=== PATIENT | female | born 1990 | race American Indian/Alaskan Native ===

== ENCOUNTER 2018-08-04 10:11 | Emergency (ER) | payer MEDICAID ==
[2018-08-04] MEDS ORDERED: TORADOL IM ONE (11:01)
[2018-08-04] MEDS ORDERED: ZOFRAN ODT PO ONE (11:01)
--- NOTE | 2018-08-04 11:03 | Emergency Department Report ---
ED Headache HPI - General Chief Complaint: Headache Stated Complaint: HEADACHE Time Seen by Provider: 08/04/18 11:00 - History of Present Illness Initial Comments: Patient is a 28-year-old female who is presenting with headache is mostly right sided. States there is some radiation to the jaw. Describes as aching throbbing pain that is a 10 out of 10. Patient denies any history of headaches but also denies fevers chills focal neurological deficit trauma dysuria or urinary frequency . Patient states she has a considerable amount of stress that she is going through as of recently. Has some mild nausea and photophobia. Allergies/Adverse Reactions: Allergies Penicillins Allergy (Verified 08/04/18 10:13) Hives Home Medications: Ambulatory Orders Ibuprofen [Motrin 600 MG tab] 600 mg PO Q8H PRN #20 tablet 08/04/18 Nitrofurantoin [place]/M-Cryst [Macrobid CAP] 100 mg PO Q12HR #14 capsule 08/04/18 traMADol [Ultram] 50 mg PO Q6HR PRN #12 tablet 08/04/18 ED Review of Systems ROS: Stated complaint: HEADACHE Other details as noted in HPI Comment: All other systems reviewed and negative ED Past Medical Hx - Past Medical History Previous Medical History?: No - Surgical History Past Surgical History?: No - Social History Smoking Status: Never Smoker Substance Use Type: None - Medications Home Medications: Home Medications Medication Instructions Recorded Confirmed Last Taken Type Ibuprofen [Motrin 600 MG tab] 600 mg PO Q8H PRN #20 tablet 08/04/18 Unknown Rx Nitrofurantoin [place]/M-Cryst 100 mg PO Q12HR #14 capsule 08/04/18 Unknown Rx [Macrobid CAP] traMADol [Ultram] 50 mg PO Q6HR PRN #12 tablet 08/04/18 Unknown Rx ED Physical Exam - General Limitations: No Limitations General appearance: alert, in no apparent distress - Head Head exam: Present: atraumatic, normocephalic - Eye Eye exam: Present: normal appearance - ENT ENT exam: Present: mucous membranes moist - Neck Neck exam: Present: normal inspection - Respiratory Respiratory exam: Present: normal lung sounds bilaterally. Absent: respiratory distress, wheezes, rales - Cardiovascular Cardiovascular Exam: Present: regular rate, normal rhythm. Absent: systolic murmur, diastolic murmur, rubs, gallop - GI/Abdominal GI/Abdominal exam: Present: soft, normal bowel sounds. Absent: distended, tenderness, guarding, rebound - Extremities Exam Extremities exam: Present: normal inspection - Back Exam Back exam: Present: normal inspection - Neurological Exam Neurological exam: Present: alert, oriented X3 - Psychiatric Psychiatric exam: Present: depressed, flat affect - Skin Skin exam: Present: warm, dry, intact, normal color. Absent: rash ED Course Vital Signs 08/04/18 08/04/18 08/04/18 10:43 11:30 11:38 Temperature 98.2 F Pulse Rate 72 87 Respiratory 18 17 17 Rate Blood Pressure 116/77 Blood Pressure 117/68 [Right] O2 Sat by Pulse 98 100 100 Oximetry ED Medical Decision Making - Lab Data Lab Results 08/04/18 Range/Units 11:43 Urine Color Yellow (Yellow) Urine Turbidity Clear (Clear) Urine pH 7.0 (5.0-7.0) Ur Specific [place] 1.012 (1.003-1.030) Urine Protein <15 mg/dl (Negative) mg/dL Urine Glucose (UA) Neg (Negative) mg/dL Urine Ketones Neg (Negative) mg/dL Urine Blood Neg (Negative) Urine Nitrite Neg (Negative) Urine Bilirubin Neg (Negative) Urine Urobilinogen < 2.0 (<2.0) mg/dL Ur Leukocyte Esterase Tr (Negative) Urine WBC (Auto) 2.0 (0.0-6.0) /HPF Urine RBC (Auto) 2.0 (0.0-6.0) /HPF U Epithel Cells (Auto) 3.0 (0-13.0) /HPF Urine Bacteria (Auto) 1+ (Negative) /HPF Urine Mucus Few /HPF Urine HCG, Qual Negative (Negative) - Medical Decision Making Patient is a 28-year-old [place] female presenting with headache. A good component of the headache may be stress related however the patient does also have a UTI present and this will be treated as well. Patient will be discharged home with medications for symptomatic relief. Critical care attestation.: If time is entered above; I have spent that time in minutes in the direct care of this critically ill patient, excluding procedure time. ED Disposition Clinical Impression: Acute cystitis, Tension headache Disposition: DC-01 TO HOME OR SELFCARE Is pt being admited?: No Does the pt Need Aspirin: No Condition: Stable Instructions: Tension Headache (ED), Urinary Tract Infection in Women (ED) Referrals: DILLON ZHOU MD [Primary Care Provider] - 3-5 Days Time of Disposition: 12:21
[2018-08-04 12:01] LABS: Bacteria,Urine 1+ /HPF (Negative); Bilirubin,Urine NEG (Negative); Blood,Urine NEG (Negative); Color,Urine Yellow (Yellow); Mucus,Urine FEW /HPF; Protein,Urine <15 mg/dL mg/dL (Negative); Urobilinogen,Urine < 2.0 mg/dL (<2.0)
[2018-08-04 12:07] LABS: HCG Qualitative,Urine Negative (Negative)
[2018-08-04 12:40] VITALS: BP 120/63
== END 2018-08-04 12:39 | disposition home or self-care (01) ==
LOC: ED 10:11
DX: N30.00 Acute cystitis without hematuria (principal); G44.209 Tension-type headache, unspecified, not intractable; Z88.0 Allergy status to penicillin
CPT/HCPCS: 81001; 81025; J1885; 96372; Q0162

== ENCOUNTER 2019-01-06 16:07 | Emergency (ER) | payer MEDICAID ==
--- NOTE | 2019-01-06 16:44 | Event Note ---
ED Screening Note Date of service: 01/06/19 ED Screening Note: This initial assessment/diagnostic orders/clinical plan/treatment(s) is/are subject to change based on patients health status, clinical progression and re- assessment by fellow clinical providers in the ED. Further treatment and workup at subsequent clinical providers discretion. Patient/guardian urged not to elope from the ED as their condition may be serious if not clinically assessed and managed. Initial orders include: 28yo BF states that she has abdominal pain x 3 weeks that is worsened with foods and now fluids. Pt states now she does not want to eat due to abdominal pain.
[2019-01-06 17:31] LABS: Basophils % (Auto) 0.5 % (0.0-1.8); Eosinophils # (Auto) 0.1 K/mm3 (0.0-0.4); Eosinophils % (Auto) 0.7 % (0.0-4.3); Hematocrit 37.1 % (30.3-42.9); Hemoglobin 12.6 gm/dl (10.1-14.3); Lymphocytes # (Auto) 2.7 K/mm3 (1.2-5.4); Lymphocytes % (Auto) 31.4 % (13.4-35.0); Mean Corpuscular HGB Conc 34 % (30-34); Mean Corpuscular Volume 79 fl (79-97); Monocytes # (Auto) 0.9 K/mm3 (0.0-0.8); Monocytes % (Auto) 10.8 % (0.0-7.3); Platelet Count 412 K/mm3 (140-440); Red Blood Count 4.71 M/mm3 (3.65-5.03); Red Cell Distribution Width 15.5 % (13.2-15.2)
[2019-01-06 17:38] LABS: Alanine Aminotransferase 10 units/L (7-56); Albumin 4.1 g/dL (3.9-5); BUN/Creatinine Ratio 14; Blood Urea Nitrogen 7 mg/dL (7-17); Calcium 9.5 mg/dL (8.4-10.2); Hemolysis Index 6
[2019-01-06 18:05] LABS: HCG Qualitative,Urine Positive (Negative)
[2019-01-06 18:10] LABS: Bacteria,Urine 1+ /HPF (Negative); Bilirubin,Urine NEG (Negative); Blood,Urine NEG (Negative); Color,Urine Yellow (Yellow); Protein,Urine <15 mg/dL mg/dL (Negative); Urobilinogen,Urine < 2.0 mg/dL (<2.0)
--- NOTE | 2019-01-06 20:22 | Emergency Department Report ---
ED Abdominal Pain HPI - General Chief Complaint: Abdominal Pain Stated Complaint: ABD PAIN/CRAMP/HEADACHE Time Seen by Provider: 01/06/19 20:20 Source: patient Mode of arrival: Ambulatory Limitations: No Limitations - History of Present Illness Initial Comments: This is a 28-year-old female here reports that she is and that she is having headache, abdominal cramps and nausea. She denies any vaginal bleeding or discharge. She states she took a home test and he was positive. Last menstrual period was 11/22/2018. Denies any back pain. Denies any cough, chest pain or fever or chills. Pain to abdomen in is located in the pelvic area and crampy. This pain comes and goes nothing makes it worse and nothing makes it better. Patient reports that she stay can Advil for pain MD Complaint: abdominal pain Onset/Timin -: month(s) Location: suprapubic Radiation: none Migration to: no migration Severity: moderate Severity scale (0 -10): 6 Quality: cramping Consistency: intermittent Improves With: nothing Worsens With: nothing Context: other (report ) Associated Symptoms: nausea. denies: vomiting, diarrhea, fever, chills, constipation, dysuria, hematemesis, hematochezia, melena, hematuria, anorexia, syncope Treatments Prior to Arrival: NSAIDs - Related Data LMP Date: 11/22/18 LMP (females 10-50): Previous Rx's Medication Instructions Recorded Last Taken Type Ibuprofen [Motrin 600 MG tab] 600 mg PO Q8H PRN #20 tablet 08/04/18 Unknown Rx Nitrofurantoin [place]/M-Cryst 100 mg PO Q12HR #14 capsule 08/04/18 Unknown Rx [Macrobid CAP] traMADoL [Ultram] 50 mg PO Q6HR PRN #12 tablet 08/04/18 Unknown Rx Acetaminophen [Non-Aspirin Extra 500 mg PO Q12H PRN #12 tablet 01/06/19 Unknown Rx Strength] Ondansetron [Zofran ODT TAB] 4 mg PO Q8H PRN #12 tab.rapdis 01/06/19 Unknown Rx Allergies Allergy/AdvReac Type Severity Reaction Status Date / Time Penicillins Allergy Hives Verified 08/04/18 10:13 ED Review of Systems ROS: Stated complaint: ABD PAIN/CRAMP/HEADACHE Other details as noted in HPI Constitutional: denies: chills, fever ENT: denies: ear pain, throat pain, congestion Respiratory: denies: cough, shortness of breath, SOB with exertion, SOB at rest, stridor, wheezing Cardiovascular: denies: chest pain, palpitations, dyspnea on exertion, edema, syncope Gastrointestinal: abdominal pain, nausea. denies: vomiting, diarrhea, constipation, hematemesis, melena, hematochezia Genitourinary: abnormal menses. denies: urgency, dysuria, frequency, hematuria, discharge, dyspareunia Musculoskeletal: denies: back pain, joint swelling, arthralgia, myalgia Skin: denies: rash Neurological: headache. denies: numbness, paresthesias, abnormal gait, vertigo ED Past Medical Hx - Past Medical History Previous Medical History?: No - Surgical History Past Surgical History?: No - Family History Family history: hypertension - Social History Smoking Status: Never Smoker Substance Use Type: None - Medications Home Medications: Home Medications Medication Instructions Recorded Confirmed Last Taken Type Ibuprofen [Motrin 600 MG tab] 600 mg PO Q8H PRN #20 tablet 08/04/18 Unknown Rx Nitrofurantoin [place]/M-Cryst 100 mg PO Q12HR #14 capsule 08/04/18 Unknown Rx [Macrobid CAP] traMADoL [Ultram] 50 mg PO Q6HR PRN #12 tablet 08/04/18 Unknown Rx Acetaminophen [Non-Aspirin Extra 500 mg PO Q12H PRN #12 tablet 01/06/19 Unknown Rx Strength] Ondansetron [Zofran ODT TAB] 4 mg PO Q8H PRN #12 tab.rapdis 01/06/19 Unknown Rx ED Physical Exam - General Limitations: No Limitations General appearance: alert, in no apparent distress - Head Head exam: Present: atraumatic, normocephalic - Eye Eye exam: Present: normal appearance, PERRL, EOMI - ENT ENT exam: Present: normal exam, normal orophraynx, mucous membranes moist - Neck Neck exam: Present: normal inspection, full ROM. Absent: tenderness - Respiratory Respiratory exam: Present: normal lung sounds bilaterally. Absent: respiratory distress, chest wall tenderness - Cardiovascular Cardiovascular Exam: Present: regular rate, normal rhythm, normal heart sounds - GI/Abdominal GI/Abdominal exam: Present: soft, normal bowel sounds. Absent: distended, tenderness, guarding, rebound, rigid, organomegaly, mass - Extremities Exam Extremities exam: Present: normal inspection, full ROM, normal capillary refill, other (No cce. + 2 pulses in all extremities, no neurovascular compromise). Absent: tenderness, pedal edema, joint swelling, calf tenderness - Back Exam Back exam: Present: normal inspection, full ROM, other (placed without any diff iculties). Absent: CVA tenderness (R), CVA tenderness (L) - Neurological Exam Neurological exam: Present: alert, oriented X3, normal gait - Psychiatric Psychiatric exam: Present: normal affect, normal mood - Skin Skin exam: Present: warm, dry, intact, normal color. Absent: rash ED Course Vital Signs 01/06/19 16:39 Temperature 98.4 F Pulse Rate 72 Respiratory 20 Rate Blood Pressure 114/70 O2 Sat by Pulse 99 Oximetry Vital Signs 01/06/19 16:39 Temperature 98.4 F Pulse Rate 72 Respiratory 20 Rate Blood Pressure 114/70 O2 Sat by Pulse 99 Oximetry - Reevaluation(s) Reevaluation #1: 01/06/19 22:03 Patient given Zofran 4 mg ODT. She is pain-free at present and she is able to tolerate apple juices and emergency room. Lab work and ultrasound reviewed and explained to patient. ED Medical Decision Making - Lab Data Result diagrams: 01/06/19 16:58 01/06/19 16:58 Lab Results 01/06/19 01/06/19 01/06/19 Range/Units 16:58 16:58 17:41 WBC 8.7 (4.5-11.0) K/mm3 RBC 4.71 (3.65-5.03) M/mm3 Hgb 12.6 (10.1-14.3) gm/dl Hct 37.1 (30.3-42.9) % MCV 79 (79-97) fl MCH 27 L (28-32) pg MCHC 34 (30-34) % RDW 15.5 H (13.2-15.2) % Plt Count 412 (140-440) K/mm3 Lymph % (Auto) 31.4 (13.4-35.0) % [place] % (Auto) 10.8 H (0.0-7.3) % Eos % (Auto) 0.7 (0.0-4.3) % Baso % (Auto) 0.5 (0.0-1.8) % Lymph # 2.7 (1.2-5.4) K/mm3 [place] # 0.9 H (0.0-0.8) K/mm3 Eos # 0.1 (0.0-0.4) K/mm3 Baso # 0.0 (0.0-0.1) K/mm3 Seg Neutrophils % 56.6 (40.0-70.0) % Seg Neutrophils # 4.9 (1.8-7.7) K/mm3 Sodium 134 L (137-145) mmol/L Potassium 4.1 (3.6-5.0) mmol/L Chloride 98.3 (98-107) mmol/L Carbon Dioxide 20 L (22-30) mmol/L Anion Gap 20 mmol/L BUN 7 (7-17) mg/dL Creatinine 0.5 L (0.7-1.2) mg/dL Estimated GFR > 60 ml/min BUN/Creatinine Ratio 14 % Glucose 85 (65-100) mg/dL Calcium 9.5 (8.4-10.2) mg/dL Total Bilirubin < 0.20 (0.1-1.2) mg/dL AST 12 (5-40) units/L ALT 10 (7-56) units/L Alkaline Phosphatase 48 (35-129) units/L Total Protein 7.2 (6.3-8.2) g/dL Albumin 4.1 (3.9-5) g/dL Albumin/Globulin Ratio 1.3 % Lipase 19 (13-60) units/L HCG, Quant (0-4) mIU/mL Urine Color Yellow (Yellow) Urine Turbidity Clear (Clear) Urine pH 6.0 (5.0-7.0) Ur Specific [place] 1.014 (1.003-1.030) Urine Protein <15 mg/dl (Negative) mg/dL Urine Glucose (UA) Neg (Negative) mg/dL Urine Ketones Neg (Negative) mg/dL Urine Blood Neg (Negative) Urine Nitrite Neg (Negative) Ur Reducing Substances Not Reportable Urine Bilirubin Neg (Negative) Urine Ictotest Not Reportable Urine Urobilinogen < 2.0 (<2.0) mg/dL Ur Leukocyte Esterase Neg (Negative) Urine WBC (Auto) 3.0 (0.0-6.0) /HPF Urine RBC (Auto) 2.0 (0.0-6.0) /HPF U Epithel Cells (Auto) 1.0 (0-13.0) /HPF Urine Bacteria (Auto) 1+ (Negative) /HPF Urine HCG, Qual Positive A (Negative) 01/06/19 Range/Units 18:42 WBC (4.5-11.0) K/mm3 RBC (3.65-5.03) M/mm3 Hgb (10.1-14.3) gm/dl Hct (30.3-42.9) % MCV (79-97) fl MCH (28-32) pg MCHC (30-34) % RDW (13.2-15.2) % Plt Count (140-440) K/mm3 Lymph % (Auto) (13.4-35.0) % [place] % (Auto) (0.0-7.3) % Eos % (Auto) (0.0-4.3) % Baso % (Auto) (0.0-1.8) % Lymph # (1.2-5.4) K/mm3 [place] # (0.0-0.8) K/mm3 Eos # (0.0-0.4) K/mm3 Baso # (0.0-0.1) K/mm3 Seg Neutrophils % (40.0-70.0) % Seg Neutrophils # (1.8-7.7) K/mm3 Sodium (137-145) mmol/L Potassium (3.6-5.0) mmol/L Chloride (98-107) mmol/L Carbon Dioxide (22-30) mmol/L Anion Gap mmol/L BUN (7-17) mg/dL Creatinine (0.7-1.2) mg/dL Estimated GFR ml/min BUN/Creatinine Ratio % Glucose (65-100) mg/dL Calcium (8.4-10.2) mg/dL Total Bilirubin (0.1-1.2) mg/dL AST (5-40) units/L ALT (7-56) units/L Alkaline Phosphatase (35-129) units/L Total Protein (6.3-8.2) g/dL Albumin (3.9-5) g/dL Albumin/Globulin Ratio % Lipase (13-60) units/L HCG, Quant 28788 H (0-4) mIU/mL Urine Color (Yellow) Urine Turbidity (Clear) Urine pH (5.0-7.0) Ur Specific [place] (1.003-1.030) Urine Protein (Negative) mg/dL Urine Glucose (UA) (Negative) mg/dL Urine Ketones (Negative) mg/dL Urine Blood (Negative) Urine Nitrite (Negative) Ur Reducing Substances Urine Bilirubin (Negative) Urine Ictotest Urine Urobilinogen (<2.0) mg/dL Ur Leukocyte Esterase (Negative) Urine WBC (Auto) (0.0-6.0) /HPF Urine RBC (Auto) (0.0-6.0) /HPF U Epithel Cells (Auto) (0-13.0) /HPF Urine Bacteria (Auto) (Negative) /HPF Urine HCG, Qual (Negative) - Radiology Data Radiology results: report reviewed OB Ultrasound dictated by radiology and report reviewed by myself. Please see findings below Findings [facility] [address] [place] [address] Ultrasound Report Signed Patient: ANIKET GARNER MR#: [id number] : 1990 Acct:[id number] Age/Sex: 28 / F ADM Date: 01/06/19 Loc: ED Attending Dr: Ordering Physician: SHEA VIDAL MD Date of Service: 01/06/19 Procedure(s): US OB transvaginal Accession Number(s): [id number] cc: SHEA VIDAL MD ULTRASOUND OBSTETRIC INDICATION / CLINICAL INFORMATION: abd pain. Clinical Gestational Age (GA): Unknown LMP TECHNIQUE: Transabdominal and Transvaginal. COMPARISON: None available. FINDINGS: GESTATIONAL SAC: Well-defined oval shape and intrauterine in location. YOLK SAC: No significant abnormality. EMBRYO/FETUS: No significant abnormality. - [place]-Rump Length = 1.3 cm = 7 weeks, 4 day(s). - Heart Rate, beats per minute (if present) = 154 ADNEXA: No significant abnormality. FREE FLUID: None. ADDITIONAL FINDINGS: None. IMPRESSION: 1. Single, living intrauterine with estimated sonographic age of 7 weeks, 4 day(s). Signer Name: Belen Hollis MD Signed: 01/06/2019 9:14 PM Workstation Name: [id number] Transcribed By: [facility] Dictated By: Belen Hollis MD Electronically Authenticated By: Belen Hollis MD Signed Date/Time: 01/06/192113 DD/ 11 TD/TT: - Medical Decision Making 28-year-old female found to be 7 weeks and 4 days and with abdominal pain in . Patient is stable she has no pain at present. She was having nausea and was given Zofran 4 mg ODT. Patient says she is feeling better she is eating and drinking well. Her CBC is stable chemistry is stable except some minor abnormalities in electrolytes and she is able to tolerate fluids and has been drinking juices in emergency room which will help with minor electrolyte imbalance. Her vital signs are stable and she is afebrile and she is not having any pain at present. Patient discharged home to follow-up with Dr. Megan Eller DIRECTOR OF LEARNING for care since she has not started her care and advised her that she needs to start on vitamin. She has 1+ bacteria in her urine but she is not having any urinary symptoms. Discharged home in stable condition. I discussed with her that if she has vaginal bleeding and an increase abdominal pain to return to the emergency room [facility] otherwise follow up with DIRECTOR OF LEARNING. I also instructed her to stop taking Advil and take Tylenol as prescribed. Prescription given for Zofran and Tylenol - Differential Diagnosis ectopic , threatened miscarriage, UTI, abdominal pain in Critical care attestation.: If time is entered above; I have spent that time in minutes in the direct care of this critically ill patient, excluding procedure time. ED Disposition Clinical Impression: Abdominal pain during in first trimester, Nausea alone Disposition: DC-01 TO HOME OR SELFCARE Is pt being admited?: No Does the pt Need Aspirin: No Condition: Stable Instructions: Abdominal Pain in (ED), Morning Sickness (ED) Additional Instructions: Please increase her fluid intake to at least 2-3 L of water daily to include Gatorade which will help with electrolytes repletion Follow-up with Dr. Megan Eller who is DIRECTOR OF LEARNING at [facility] If your condition worsens and she developed increase in abdominal pain and vaginal bleeding with worsening headache and nausea and vomiting, please return to emergency room. Take Zofran and this will help with nausea Start taking vitamin Please do not take Advil Prescriptions: Acetaminophen [Non-Aspirin Extra Strength] 500 mg PO Q12H PRN #12 tablet PRN Reason: for headache Ondansetron [Zofran ODT TAB] 4 mg PO Q8H PRN #12 tab.rapdis PRN Reason: Nausea And Vomiting Referrals: TERRY ELLER MD [Staff Physician] - 01/09/19 Forms: Work/School Release Form(ED)
--- NOTE | 2019-01-06 21:19 | Ultrasound Report ---
ULTRASOUND OBSTETRIC INDICATION / CLINICAL INFORMATION: abd pain. Clinical Gestational Age (GA): Unknown LMP TECHNIQUE: Transabdominal and Transvaginal. COMPARISON: None available. FINDINGS: GESTATIONAL SAC: Well-defined oval shape and intrauterine in location. YOLK SAC: No significant abnormality. EMBRYO/FETUS: No significant abnormality. - [place]-Rump Length = 1.3 cm = 7 weeks, 4 day(s). - Heart Rate, beats per minute (if present) = 154 ADNEXA: No significant abnormality. FREE FLUID: None. ADDITIONAL FINDINGS: None. IMPRESSION: 1. Single, living intrauterine with estimated sonographic age of 7 weeks, 4 day(s). Signer Name: Belen Hollis MD Signed: 01/06/2019 9:14 PM Workstation Name: [id number]
--- NOTE | 2019-01-06 21:19 | Ultrasound Report ---
ULTRASOUND OBSTETRIC INDICATION / CLINICAL INFORMATION: abd pain. Clinical Gestational Age (GA): Unknown LMP TECHNIQUE: Transabdominal and Transvaginal. COMPARISON: None available. FINDINGS: GESTATIONAL SAC: Well-defined oval shape and intrauterine in location. YOLK SAC: No significant abnormality. EMBRYO/FETUS: No significant abnormality. - [place]-Rump Length = 1.3 cm = 7 weeks, 4 day(s). - Heart Rate, beats per minute (if present) = 154 ADNEXA: No significant abnormality. FREE FLUID: None. ADDITIONAL FINDINGS: None. IMPRESSION: 1. Single, living intrauterine with estimated sonographic age of 7 weeks, 4 day(s). Signer Name: Belen Hollis MD Signed: 01/06/2019 9:14 PM Workstation Name: [email or web address]
[2019-01-06] MEDS ORDERED: ONDANSETRON 4 MG ODT TAB PO ONE (21:44)
[2019-01-06 23:19] VITALS: BP 111/75
== END 2019-01-06 22:30 | disposition home or self-care (01) ==
LOC: ED 16:07
DX: O26.891 Other specified pregnancy related conditions, first trimester (principal); R10.9 Unspecified abdominal pain; R51 Headache; R11.0 Nausea; Z3A.01 Less than 8 weeks gestation of pregnancy
CPT/HCPCS: 36415; 76801; 76817; 80053; 81001; 81025; 83690; 84702; 85025; Q0162

== ENCOUNTER 2020-02-03 21:57 | Emergency (ER) | payer MEDICAID ==
[2020-02-04] MEDS ORDERED: CLINDAMYCIN 300 MG CAP PO ONE (03:36)
[2020-02-04] MEDS ORDERED: oxyCODONE /ACETAMINOPHEN 5-325MG TAB PO ONE (03:36)
[2020-02-04] MEDS ORDERED: ONDANSETRON 4 MG ODT TAB PO ONE (03:37)
[2020-02-04] MEDS ORDERED: IBUPROFEN 600 MG TAB PO ONE (03:37)
[2020-02-04] MEDS ORDERED: metroNIDAZOLE 500 MG TAB PO ONE (03:38)
--- NOTE | 2020-02-04 03:43 | Emergency Department Report ---
ED General Adult HPI - General Chief complaint: Dental/Oral Stated complaint: TOOTHACHE Source: patient Mode of arrival: Ambulatory Limitations: No Limitations - History of Present Illness Initial comments: Patient is a 29-year-old -[place] female with no past medical history presents to the ED with acute onset persistent severe and worsening right mandibular premolar molar toothache with swollen gums for the last 1 week. Patient states that she has been taking [id number] medications for pain with no relief. Patient states that the pain got worse in the last 2 days, and now radiates to the right ear and right temporal area with a headache. Patient denies dizziness, syncope, traumatic injury, fever, chills, nausea, vomiting, sore throat, chest pain, shortness of breath, change in vision, abdominal pain or cough. MD Complaint: dental pain, swollen gum -: Sudden, week(s) (1) Location: mouth Radiation: non-radiation Severity scale (0 -10): 8 Quality: aching, sharp Consistency: constant Improves with: none Worsens with: none Associated Symptoms: denies other symptoms. denies: confusion, chest pain, c ough, diaphoresis, fever/chills, headaches, loss of appetite, malaise, nausea/vomiting, seizure, shortness of breath, syncope, weakness Treatments Prior to Arrival: NSAID - Related Data Previous Rx's Medication Instructions Recorded Last Taken Type Ibuprofen [Motrin 600 MG tab] 600 mg PO Q8H PRN #20 tablet 08/04/18 Unknown Rx Nitrofurantoin [place]/M-Cryst 100 mg PO Q12HR #14 capsule 08/04/18 Unknown Rx [Macrobid CAP] traMADoL [Ultram] 50 mg PO Q6HR PRN #12 tablet 08/04/18 Unknown Rx Acetaminophen [Non-Aspirin Extra 500 mg PO Q12H PRN #12 tablet 01/06/19 Unknown Rx Strength] Ondansetron [Zofran ODT TAB] 4 mg PO Q8H PRN #12 tab.rapdis 01/06/19 Unknown Rx Acetaminophen/Codeine [Tylenol 1 tab PO Q6H PRN #12 tab 02/04/20 Unknown Rx /Codeine # 3 tab] Clindamycin [Clindamycin CAP] 150 mg PO Q8HR #60 capsule 02/04/20 Unknown Rx Ketorolac [Toradol] 10 mg PO Q8H PRN #20 tablet 02/04/20 Unknown Rx metroNIDAZOLE [Flagyl] 500 mg PO Q12HR #20 tab 02/04/20 Unknown Rx Allergies Allergy/AdvReac Type Severity Reaction Status Date / Time Penicillins Allergy Hives Verified 08/04/18 10:13 ED Review of Systems ROS: Stated complaint: TOOTHACHE Other details as noted in HPI Constitutional: denies: chills, fever Eyes: denies: eye pain, eye discharge, vision change ENT: dental pain, other (swollen and painful). denies: ear pain, throat pain Respiratory: denies: cough, shortness of breath, wheezing Cardiovascular: denies: chest pain, palpitations Endocrine: no symptoms reported Gastrointestinal: denies: abdominal pain, nausea, diarrhea Genitourinary: denies: urgency, dysuria, discharge Musculoskeletal: denies: back pain, joint swelling, arthralgia Skin: denies: rash, lesions Neurological: headache. denies: weakness, paresthesias Psychiatric: denies: anxiety, depression Hematological/Lymphatic: denies: easy bleeding, easy bruising ED Past Medical Hx - Past Medical History Previous Medical History?: No - Surgical History Past Surgical History?: No - Social History Smoking Status: Never Smoker Substance Use Type: None - Medications Home Medications: Home Medications Medication Instructions Recorded Confirmed Last Taken Type Ibuprofen [Motrin 600 MG tab] 600 mg PO Q8H PRN #20 tablet 08/04/18 Unknown Rx Nitrofurantoin [place]/M-Cryst 100 mg PO Q12HR #14 capsule 08/04/18 Unknown Rx [Macrobid CAP] traMADoL [Ultram] 50 mg PO Q6HR PRN #12 tablet 08/04/18 Unknown Rx Acetaminophen [Non-Aspirin Extra 500 mg PO Q12H PRN #12 tablet 01/06/19 Unknown Rx Strength] Ondansetron [Zofran ODT TAB] 4 mg PO Q8H PRN #12 tab.rapdis 01/06/19 Unknown Rx Acetaminophen/Codeine [Tylenol 1 tab PO Q6H PRN #12 tab 02/04/20 Unknown Rx /Codeine # 3 tab] Clindamycin [Clindamycin CAP] 150 mg PO Q8HR #60 capsule 02/04/20 Unknown Rx Ketorolac [Toradol] 10 mg PO Q8H PRN #20 tablet 02/04/20 Unknown Rx metroNIDAZOLE [Flagyl] 500 mg PO Q12HR #20 tab 02/04/20 Unknown Rx ED Physical Exam - General Limitations: No Limitations General appearance: alert, in no apparent distress - Head Head exam: Present: atraumatic, normocephalic, normal inspection - Eye Eye exam: Present: normal appearance, PERRL, EOMI Pupils: Present: normal accommodation - ENT ENT exam: Present: normal exam, normal orophraynx, mucous membranes moist, TM's normal bilaterally, normal external ear exam - Neck Neck exam: Present: normal inspection, full ROM - Respiratory Respiratory exam: Present: normal lung sounds bilaterally. Absent: respiratory distress, wheezes, rales, chest wall tenderness, accessory muscle use, decreased breath sounds, prolonged expiratory - Cardiovascular Cardiovascular Exam: Present: regular rate, normal rhythm, normal heart sounds. Absent: systolic murmur, diastolic murmur, rubs, gallop - GI/Abdominal GI/Abdominal exam: Present: soft, normal bowel sounds. Absent: tenderness, guarding, rebound, hyperactive bowel sounds, organomegaly, mass - Extremities Exam Extremities exam: Present: normal inspection, full ROM, normal capillary refill - Back Exam Back exam: Present: normal inspection, full ROM. Absent: tenderness, CVA tenderness (R), CVA tenderness (L), muscle spasm, paraspinal tenderness - Neurological Exam Neurological exam: Present: alert, oriented X3, CN II-XII intact, normal gait, reflexes normal - Psychiatric Psychiatric exam: Present: normal affect, normal mood - Skin Skin exam: Present: warm, dry, intact, normal color. Absent: rash ED Course Vital Signs 02/03/20 22:01 Temperature 98.1 F Pulse Rate 64 Respiratory 16 Rate Blood Pressure 141/71 O2 Sat by Pulse 97 Oximetry ED Medical Decision Making - Medical Decision Making This is a 29-year-old -[place] female with no past medical history presents to the ED with acute onset persistent severe and worsening right mandibular premolar molar toothache with swollen gums for the last 1 week. Patient states that she has been taking [id number] medications for pain with no relief. Patient states that the pain got worse in the last 2 days, and now radiates to the right ear and right temporal area with a headache. In the ED, patient is alert and oriented x3 and is not in distress. Patient was treated for pain in the ED and was given initial oral antibiotics. Patient was discharged home on medications and advised to follow-up with her primary care physician or dentist in 7 to 10 days for reevaluation. Patient was advised retu rn to the ED immediately if symptoms get worse. - Differential Diagnosis dental abscess; gingivitis; dental caries Critical care attestation.: If time is entered above; I have spent that time in minutes in the direct care of this critically ill patient, excluding procedure time. ED Disposition Clinical Impression: Dental abscess, Acute gingivitis, Dental caries Disposition: TO HOME OR SELFCARE Is pt being admited?: No Does the pt Need Aspirin: No Condition: Stable Instructions: Dental Abscess, [id number], Trench Mouth Additional Instructions: Take medication with food, drink plenty of fluids and follow-up with your primary care physician or dentist in 7 to 10 days for reevaluation. Return to the ED immediately if symptoms get worse. Prescriptions: Clindamycin [Clindamycin CAP] 150 mg PO Q8HR #60 capsule metroNIDAZOLE [Flagyl] 500 mg PO Q12HR #20 tab Ketorolac [Toradol] 10 mg PO Q8H PRN #20 tablet PRN Reason: Pain Acetaminophen/Codeine [Tylenol /Codeine # 3 tab] 1 tab PO Q6H PRN #12 tab PRN Reason: Pain , Severe (7-10) Referrals: [facility] [Outside] - 3-5 Days [facility] [Outside] - 3-5 Days Time of Disposition: 03:39 Print Language: NORWEGIAN
[2020-02-04 06:58] VITALS: BP 132/72
== END 2020-02-04 04:15 | disposition home or self-care (01) ==
LOC: ED 21:57
DX: K04.7 Periapical abscess without sinus (principal); K05.00 Acute gingivitis, plaque induced; K02.9 Dental caries, unspecified; Z79.1 Long term (current) use of non-steroidal anti-inflammatories (NSAID); Z79.899 Other long term (current) drug therapy; Z88.0 Allergy status to penicillin
CPT/HCPCS: 99282; Q0162

== ENCOUNTER 2020-02-23 09:04 | Emergency (ER) | payer OTHER, MEDICAID ==
[2020-02-23 09:09] VITALS: BP 115/80
--- NOTE | 2020-02-23 09:25 | Emergency Department Report ---
HPI - General Chief Complaint: Allergic Reaction Time Seen by Provider: 02/23/20 09:19 ED Past Medical Hx - Past Medical History Previous Medical History?: No - Surgical History Past Surgical History?: No - Social History Smoking Status: Never Smoker Substance Use Type: None - Medications Home Medications: Home Medications Medication Instructions Recorded Confirmed Last Taken Type Ibuprofen [Motrin 600 MG tab] 600 mg PO Q8H PRN #20 tablet 08/04/18 Unknown Rx Nitrofurantoin [place]/M-Cryst 100 mg PO Q12HR #14 capsule 08/04/18 Unknown Rx [Macrobid CAP] traMADoL [Ultram] 50 mg PO Q6HR PRN #12 tablet 08/04/18 Unknown Rx Acetaminophen [Non-Aspirin Extra 500 mg PO Q12H PRN #12 tablet 01/06/19 Unknown Rx Strength] Ondansetron [Zofran ODT TAB] 4 mg PO Q8H PRN #12 tab.rapdis 01/06/19 Unknown Rx Acetaminophen/Codeine [Tylenol 1 tab PO Q6H PRN #12 tab 02/04/20 Unknown Rx /Codeine # 3 tab] Clindamycin [Clindamycin CAP] 150 mg PO Q8HR #60 capsule 02/04/20 Unknown Rx Ketorolac [Toradol] 10 mg PO Q8H PRN #20 tablet 02/04/20 Unknown Rx metroNIDAZOLE [Flagyl] 500 mg PO Q12HR #20 tab 02/04/20 Unknown Rx ED Review of Systems ROS: Stated complaint: ALLERGIC REACTION X 2 DAYS Other details as noted in HPI Physical Exam - Physical Exam Vital Signs: Vital Signs 02/23/20 09:08 Temperature 97.9 F Pulse Rate 71 Respiratory 18 Rate Blood Pressure 115/80 O2 Sat by Pulse 99 Oximetry ED Course Vital Signs 02/23/20 09:08 Temperature 97.9 F Pulse Rate 71 Respiratory 18 Rate Blood Pressure 115/80 O2 Sat by Pulse 99 Oximetry Critical care attestation.: If time is entered above; I have spent that time in minutes in the direct care of this critically ill patient, excluding procedure time. ED Disposition Condition: Stable
[2020-02-23] MEDS ORDERED: dexAMETHasone 20 MG/5 ML VIAL IV ONE (09:26)
[2020-02-23] MEDS ORDERED: FAMOTIDINE 20 MG TAB PO ONE (09:26)
--- NOTE | 2020-02-23 09:26 | Emergency Department Report ---
ED General Adult HPI - General Chief complaint: Allergic Reaction Stated complaint: ALLERGIC REACTION X 2 DAYS Time Seen by Provider: 02/23/20 09:19 Source: patient Mode of arrival: Ambulatory Limitations: No Limitations - History of Present Illness Initial comments: 29-year-old -[place] female patient presents with complaints of hives and facial swelling x2 days now with feelings of difficulty swallowing this morning. Patient states she is unsure of what she is having an allergic reaction to and denies any changes in her products or new medications. She denies any use of lisinopril. No shortness of breath or chest pain per patient. - Related Data Previous Rx's Medication Instructions Recorded Last Taken Type Ibuprofen [Motrin 600 MG tab] 600 mg PO Q8H PRN #20 tablet 08/04/18 Unknown Rx Nitrofurantoin [place]/M-Cryst 100 mg PO Q12HR #14 capsule 08/04/18 Unknown Rx [Macrobid CAP] traMADoL [Ultram] 50 mg PO Q6HR PRN #12 tablet 08/04/18 Unknown Rx Acetaminophen [Non-Aspirin Extra 500 mg PO Q12H PRN #12 tablet 01/06/19 Unknown Rx Strength] Ondansetron [Zofran ODT TAB] 4 mg PO Q8H PRN #12 tab.rapdis 01/06/19 Unknown Rx Acetaminophen/Codeine [Tylenol 1 tab PO Q6H PRN #12 tab 02/04/20 Unknown Rx /Codeine # 3 tab] Clindamycin [Clindamycin CAP] 150 mg PO Q8HR #60 capsule 02/04/20 Unknown Rx Ketorolac [Toradol] 10 mg PO Q8H PRN #20 tablet 02/04/20 Unknown Rx metroNIDAZOLE [Flagyl] 500 mg PO Q12HR #20 tab 02/04/20 Unknown Rx Famotidine [Acid Controller] 20 mg PO BID 7 Days #14 tablet 02/23/20 Unknown Rx Loratadine 10 mg PO QDAY 7 Days #7 capsule 02/23/20 Unknown Rx Prednisone [predniSONE 10 mg 10 mg PO .TAPER #1 tab.ds.pk 02/23/20 Unknown Rx (6-Day Pack, 21 Tabs)] Allergies Allergy/AdvReac Type Severity Reaction Status Date / Time Penicillins Allergy Hives Verified 02/23/20 09:11 ED Review of Systems ROS: Stated complaint: ALLERGIC REACTION X 2 DAYS Other details as noted in HPI Constitutional: denies: chills, fever ENT: denies: ear pain, throat pain Respiratory: denies: cough, shortness of breath Cardiovascular: denies: chest pain Gastrointestinal: denies: nausea, vomiting Skin: rash. denies: change in color Neurological: denies: headache Hematological/Lymphatic: denies: swollen glands ED Past Medical Hx - Past Medical History Previous Medical History?: No - Surgical History Past Surgical History?: No - Social History Smoking Status: Never Smoker Substance Use Type: None - Medications Home Medications: Home Medications Medication Instructions Recorded Confirmed Last Taken Type Ibuprofen [Motrin 600 MG tab] 600 mg PO Q8H PRN #20 tablet 08/04/18 Unknown Rx Nitrofurantoin [place]/M-Cryst 100 mg PO Q12HR #14 capsule 08/04/18 Unknown Rx [Macrobid CAP] traMADoL [Ultram] 50 mg PO Q6HR PRN #12 tablet 08/04/18 Unknown Rx Acetaminophen [Non-Aspirin Extra 500 mg PO Q12H PRN #12 tablet 01/06/19 Unknown Rx Strength] Ondansetron [Zofran ODT TAB] 4 mg PO Q8H PRN #12 tab.rapdis 01/06/19 Unknown Rx Acetaminophen/Codeine [Tylenol 1 tab PO Q6H PRN #12 tab 02/04/20 Unknown Rx /Codeine # 3 tab] Clindamycin [Clindamycin CAP] 150 mg PO Q8HR #60 capsule 02/04/20 Unknown Rx Ketorolac [Toradol] 10 mg PO Q8H PRN #20 tablet 02/04/20 Unknown Rx metroNIDAZOLE [Flagyl] 500 mg PO Q12HR #20 tab 02/04/20 Unknown Rx Famotidine [Acid Controller] 20 mg PO BID 7 Days #14 tablet 02/23/20 Unknown Rx Loratadine 10 mg PO QDAY 7 Days #7 capsule 02/23/20 Unknown Rx Prednisone [predniSONE 10 mg 10 mg PO .TAPER #1 tab.ds.pk 02/23/20 Unknown Rx (6-Day Pack, 21 Tabs)] ED Physical Exam - General Limitations: No Limitations General appearance: alert, in no apparent distress - Head Head exam: Present: atraumatic, normocephalic, other (Mild swelling noted to right side of face and lips; no cellulitic changes noted; no tenderness to palpation) - Eye Eye exam: Present: normal appearance. Absent: scleral icterus, conjunctival injection - ENT ENT exam: Present: normal orophraynx, mucous membranes moist - Neck Neck exam: Present: normal inspection, full ROM. Absent: lymphadenopathy - Respiratory Respiratory exam: Present: normal lung sounds bilaterally. Absent: respiratory distress - Cardiovascular Cardiovascular Exam: Present: regular rate - Extremities Exam Extremities exam: Present: full ROM - Back Exam Back exam: Present: normal inspection - Neurological Exam Neurological exam: Present: alert, oriented X3, normal gait - Psychiatric Psychiatric exam: Present: normal affect, normal mood - Skin Skin exam: Present: warm, dry, rash, urticaria (Noted to face and arms) ED Course Vital Signs 02/23/20 09:08 Temperature 97.9 F Pulse Rate 71 Respiratory 18 Rate Blood Pressure 115/80 O2 Sat by Pulse 99 Oximetry ED Medical Decision Making - Medical Decision Making 29-year-old -[place] female patient presents with complaints of hives and facial swelling x2 days now with feelings of difficulty swallowing this morning. Patient states she is unsure of what she is having an allergic reaction to and denies any changes in her products or new medications. She denies any use of lisinopril. No shortness of breath or chest pain per patient. She reports Benadryl is not helping. Patient given Decadron and Pepcid here in the ED and monitored for about 1.5 hours. She states her symptoms have significantly improved and she is no longer having any difficulty swallowing. Will discharge patient home with Claritin, Pepcid, and prednisone Dosepak. Recommend follow-up with primary care doctor within 2 to 3 days. Discussed signs and symptoms that should prompt immediate return to the emergency department in detail with patient who verbalizes understanding. Critical care attestation.: If time is entered above; I have spent that time in minutes in the direct care of this critically ill patient, excluding procedure time. ED Disposition Clinical Impression: Urticaria Allergic reaction Qualifiers: Encounter type: initial encounter Qualified Code(s): T78.40XA - Allergy, unspecified, initial encounter Angio-edema Qualifiers: Encounter type: initial encounter Qualified Code(s): T78.3XXA - Angioneurotic edema, initial encounter Disposition: TO HOME OR SELFCARE Is pt being admited?: No Condition: Stable Instructions: Angioedema, [id number], Hives, [id number] Prescriptions: Famotidine [Acid Controller] 20 mg PO BID 7 Days #14 tablet Loratadine 10 mg PO QDAY 7 Days #7 capsule Prednisone [predniSONE 10 mg (6-Day Pack, 21 Tabs)] 10 mg PO .TAPER #1 tab.ds.pk
== END 2020-02-23 11:23 | disposition home or self-care (01) ==
LOC: ED 09:04
DX: T78.3XXA Angioneurotic edema, initial encounter (principal); T78.40XA Allergy, unspecified, initial encounter; Z79.1 Long term (current) use of non-steroidal anti-inflammatories (NSAID); Z79.899 Other long term (current) drug therapy; Z88.0 Allergy status to penicillin; X58.XXXA Exposure to other specified factors, initial encounter
CPT/HCPCS: 96374; 99282; J1100